=== PATIENT | male | born 1980 | race Caucasian/White ===

== ENCOUNTER → 2020-05-30 | Outpatient (CLI) | payer SELFPAY | LOC: M LABSMTC 14:26 | PROVIDERS: ATTEND Pediatrics | DX: Z20.828 Contact with and (suspected) exposure to other viral communicable diseases (principal) ==

== ENCOUNTER 2021-10-11 07:28 | Inpatient (IN) | payer OTHER, SELFPAY ==
[~2021-10-11] VITALS: Ht 165.1 cm; Wt 148.9 kg
[2021-10-11] MEDS ORDERED: LABETALOL 100MG/20ML VIAL IV STA ×2 (08:44→09:46)
[2021-10-11 08:52] LABS: VENOUS BASE EXCESS -1.8 (-2.0-2.0); VENOUS HCO3 23.2 MEQ/L (23.0-27.0); VENOUS O2 SATURATION 67.9 % (60.0-80.0); VENOUS PARTIAL PRESSURE CO2 40.4 mmHg (38.0-50.0); VENOUS PARTIAL PRESSURE O2 38.2 mmHg (30.0-50.0); VENOUS PH 7.377 UNITS (7.330-7.430); VENOUS STANDARD HCO3 22.3 MEQ/L; VENOUS TOTAL CO2 24.4 MEQ/L (24.0-28.0)
[2021-10-11 08:59] LABS: BASO # 0.1 10^3/uL (0.0-0.2); BASO % 0.4 % (0.0-1.0); EOS # 0.1 10^3/uL (0.0-0.5); EOS % 0.5 % (0.0-3.0); HEMATOCRIT 41.2 % (42.0-52.0); HEMOGLOBIN 13.2 g/dl (13.5-17.5); LYMPH % 8.2 % (24.0-44.0); MEAN CORPUSCULAR HEMOGLOBIN 26.3 pg (27.0-33.0); MEAN CORPUSCULAR VOLUME 82.2 fl (80.0-96.0); MONO # 0.7 10^3/uL (0.0-0.8); MONO % 6.1 % (2.0-8.0); NEUTROPHILS # 10.3 10^3/uL (1.5-8.5); NEUTROPHILS % 84.2 % (36.0-66.0); PLATELET COUNT, AUTOMATED 284 10^3/uL (150-450); RED BLOOD COUNT 5.01 10^6/uL (4.30-6.10); WHITE BLOOD COUNT 12.2 10^3/uL (4.0-10.0)
[2021-10-11 09:33] LABS: RSV AMPLIFICATION NEGATIVE (NEGATIVE)
[2021-10-11 09:43] LABS: BILIRUBIN,DIRECT 0.6 MG/DL (0.0-0.2); BILIRUBIN,TOTAL 1.6 MG/DL (0.2-1.0); CREATININE FOR GFR 3.73 MG/DL (0.70-1.30); GLOMERULAR FILTRATION RATE 19.2 (>60); POTASSIUM SERUM 3.3 MEQ/L (3.5-5.1); THYROID STIMULATING HORMONE 2.03 uIU/ML (0.358-3.740); TOTAL PROTEIN 6.7 GM/DL (6.4-8.2)
[2021-10-11 10:28] LABS: OSMOLALITY URINE 414 MOSM/KG (50-1400)
[2021-10-11 10:29] LABS: APPEARANCE, URINE CLEAR (CLEAR); BACTERIA, URINE AUTO 1+ (NEGATIVE); BILIRUBIN, URINE AUTO NEGATIVE (NEGATIVE); BLOOD, URINE BLOOD NEGATIVE (NEGATIVE); COLOR, URINE YELLOW (YELLOW); GLUCOSE, URINE (UA) AUTO 1+ mg/dL (NEGATIVE); KETONE, URINE AUTO NEGATIVE (NEGATIVE); LEUKOCYTE ESTERASE, URINE AUTO NEGATIVE (NEGATIVE); MUCUS, URINE SMALL (NEGATIVE); NITRITE, URINE AUTO NEGATIVE (NEGATIVE); PROTEIN, URINE AUTO 3+ mg/dL (NEGATIVE); RBC, URINE AUTO 3 /HPF (0-3); SPECIFIC GRAVITY URINE AUTO 1.013 (1.002-1.035); SQUAMOUS EPITHELIAL CELL UR AU 0 /HPF (0-6); UROBILINOGEN, URINE AUTO 0.2 mg/dL (0.0-2.0); WBC, URINE AUTO 1 /HPF (0-3)
[2021-10-11 10:57] LABS: CREATININE,RANDOM URINE 79.4 MG/DL; POTASSIUM RANDOM URINE 28.1 MEQ/L; SODIUM,RANDOM URINE 48 MEQ/L
[2021-10-11] MEDS ORDERED: HOME MED LIST COMPLETE! XX SCH (11:55)
[2021-10-11] MEDS ORDERED: D3 M1CAP2 PO (11:55)
[2021-10-11] MEDS ORDERED: VITA500C24 PO (11:55)
[2021-10-11] MEDS ORDERED: MOM 30ML SUSPENSION UDC PO PRN (12:15)
[2021-10-11] MEDS ORDERED: MAALOX 30 ML SUSP *UDC PO PRN (12:15)
[2021-10-11 12:27] LABS: MAGNESIUM LEVEL 2.5 MG/DL (1.8-2.4); URIC ACID 9.5 MG/DL (3.5-7.2)
[2021-10-11] MEDS ORDERED: FUROSEMIDE 20MG/2ML VIAL (J1940) IV ONE ×2 (13:00→17:30)
[2021-10-11] MEDS ORDERED: FUROSEMIDE 40MG/4ML VIAL (J1940) IV ONE ×2 (13:00)
[2021-10-11] MEDS: DOCUSATE SODIUM 100MG CAPSULE PO SCH ×2 (14:04→20:21)
[2021-10-11 14:46] LABS: CHOLESTEROL RISK RATIO 6.64 (<5)
[2021-10-11 14:51] LABS: HEMOGLOBIN A1c 6.5 %
[2021-10-11 16:00] VITALS: BP 178/98
[2021-10-11] MEDS ORDERED: POTASSIUM CHLORIDE 10MEQ SR TABLET PO ONE (16:10)
[2021-10-11] MEDS ORDERED: METOPROLOL TART 12.5 MG PER 1/2 TAB PO SCH (16:30)
[2021-10-11 17:43] VITALS: BP 180/112
[2021-10-11 18:03] LABS: CREATININE,RANDOM URINE 53.5 MG/DL; TOTAL PROTEIN,RANDOM URINE 228.3 MG/DL (0.0-12.0)
[2021-10-11 18:30] VITALS: BP 182/120
[2021-10-11] MEDS ORDERED: hydrALAZINE 20MG/ML 1ML VIAL (J0360 PER 20MG) IV STA ×3 (18:31→22:09)
[2021-10-11 19:48] VITALS: BP 170/100
[2021-10-11 20:00] VITALS: BP 171/110
[2021-10-11] MEDS: HEPARIN SOD (PORCINE) 5000UNITS/ML 1ML VIAL/SYRINGE SC SCH (20:21)
[2021-10-11] MEDS: METOPROLOL TART 12.5 MG PER 1/2 TAB PO SCH (20:49)
[2021-10-11 23:14] VITALS: BP 138/91
[2021-10-12] VITALS (7 sets, daily range): BP systolic 152–183; BP diastolic 87–109
[2021-10-12] MEDS: HEPARIN SOD (PORCINE) 5000UNITS/ML 1ML VIAL/SYRINGE SC SCH ×3 (05:00→20:40)
[2021-10-12 05:49] LABS: BASO # 0.1 10^3/uL (0.0-0.2); BASO % 0.6 % (0.0-1.0); EOS # 0.1 10^3/uL (0.0-0.5); EOS % 0.9 % (0.0-3.0); HEMATOCRIT 40.1 % (42.0-52.0); HEMOGLOBIN 12.9 g/dl (13.5-17.5); LYMPH # 1.2 10^3/uL (1.5-5.0); MEAN CORPUSCULAR HEMOGLOBIN 26.7 pg (27.0-33.0); MEAN CORPUSCULAR HGB CONC 32.2 g/dl (32.0-36.5); MEAN CORPUSCULAR VOLUME 82.9 fl (80.0-96.0); MONO # 0.7 10^3/uL (0.0-0.8); MONO % 6.7 % (2.0-8.0); NEUTROPHILS # 8.7 10^3/uL (1.5-8.5); NEUTROPHILS % 80.2 % (36.0-66.0); PLATELET COUNT, AUTOMATED 273 10^3/uL (150-450); RED BLOOD COUNT 4.84 10^6/uL (4.30-6.10); WHITE BLOOD COUNT 10.9 10^3/uL (4.0-10.0)
[2021-10-12 06:06] LABS: CALCIUM LEVEL 8.4 MG/DL (8.5-10.1); CREATININE FOR GFR 3.99 MG/DL (0.70-1.30); GLOMERULAR FILTRATION RATE 17.8 (>60); POTASSIUM SERUM 3.1 MEQ/L (3.5-5.1)
[2021-10-12] MEDS: METOPROLOL TART 12.5 MG PER 1/2 TAB PO SCH (07:53)
[2021-10-12] MEDS: DOCUSATE SODIUM 100MG CAPSULE PO SCH ×2 (07:53→20:39)
[2021-10-12] MEDS ORDERED: POTASSIUM CHLORIDE 10MEQ SR TABLET PO ONE (08:00)
[2021-10-12] MEDS: FUROSEMIDE 100MG/10ML VIAL (J1940) IV SCH ×2 (09:55→16:14)
[2021-10-12 10:45] LABS: COMPLEMENT C3 127 MG/DL (90-180); COMPLEMENT C4 21 MG/DL (10-40); FERRITIN 49 NG/ML (26-388); IRON (FE) 40 UG/DL (65-175); PERCENT SATURATION 10.5 % (19.7-50.0); TOTAL IRON BINDING CAPACITY 380 UG/DL (250-450); TOTAL PROTEIN 6.2 GM/DL (6.4-8.2)
[2021-10-12 10:53] LABS: PTH INTACT 284.1 PG/ML (18.5-88.0); TOTAL 25(OH) VITAMIN D 34.9 NG/ML (30.0-100.0)
[2021-10-12] MEDS ORDERED: CARVedilol 12.5 MG TAB PO ONE (18:45)
[2021-10-12] MEDS ORDERED: CARVedilol 6.25 MG TAB PO SCH (21:00)
[2021-10-13] VITALS (7 sets, daily range): BP systolic 138–173; BP diastolic 70–118
[2021-10-13] MEDS: ACETAMINOPHEN TAB 650MG DOSE (2X325MG) PO PRN ×2 (03:32→23:48)
[2021-10-13] MEDS ORDERED: **hydrALAZINE HCL** 25 MG TAB PO ONE (04:00)
[2021-10-13] MEDS: HEPARIN SOD (PORCINE) 5000UNITS/ML 1ML VIAL/SYRINGE SC SCH ×3 (05:30→21:07)
[2021-10-13 08:02] LABS: BASO # 0.1 10^3/uL (0.0-0.2); BASO % 0.6 % (0.0-1.0); EOS # 0.2 10^3/uL (0.0-0.5); EOS % 2.1 % (0.0-3.0); HEMOGLOBIN 13.1 g/dl (13.5-17.5); LYMPH # 1.4 10^3/uL (1.5-5.0); LYMPH % 12.5 % (24.0-44.0); MEAN CORPUSCULAR HGB CONC 31.2 g/dl (32.0-36.5); MEAN CORPUSCULAR VOLUME 83.5 fl (80.0-96.0); MONO # 0.8 10^3/uL (0.0-0.8); MONO % 7.4 % (2.0-8.0); NEUTROPHILS # 8.5 10^3/uL (1.5-8.5); PLATELET COUNT, AUTOMATED 289 10^3/uL (150-450); RED BLOOD COUNT 5.03 10^6/uL (4.30-6.10)
[2021-10-13 08:22] LABS: CALCIUM LEVEL 8.7 MG/DL (8.5-10.1); CREATININE FOR GFR 4.27 MG/DL (0.70-1.30); GLOMERULAR FILTRATION RATE 16.4 (>60); MAGNESIUM LEVEL 2.5 MG/DL (1.8-2.4); POTASSIUM SERUM 3.2 MEQ/L (3.5-5.1)
[2021-10-13] MEDS ORDERED: POTASSIUM CHLORIDE 10MEQ SR TABLET PO ONE ×3 (08:30→18:30)
[2021-10-13] MEDS ORDERED: **hydrALAZINE HCL** 25 MG TAB PO SCH ×2 (09:00→16:00)
[2021-10-13] MEDS ORDERED: CARVedilol 12.5 MG TAB PO SCH (09:00)
[2021-10-13] MEDS ORDERED: CARVedilol 6.25 MG TAB PO SCH (09:00)
[2021-10-13] MEDS: DOCUSATE SODIUM 100MG CAPSULE PO SCH ×2 (09:29→20:05)
[2021-10-13] MEDS: FUROSEMIDE 100MG/10ML VIAL (J1940) IV SCH (09:29)
[2021-10-13] MEDS ORDERED: CARVedilol 12.5 MG TAB PO ONE (10:05)
[2021-10-13] MEDS ORDERED: FERRIC CARBOXYMALTOSE INJ 750 MG, VIAL MATE ADAPTER 1 EACH in NS 250 ML IV ONE (12:00)
[2021-10-13 12:12] LABS: ANTINUCLEAR ANTIBODIES DIRECT Negative (Negative)
[2021-10-13] MEDS: FUROSEMIDE 40MG/4ML VIAL (J1940) IV SCH ×3 (16:00→23:11)
[2021-10-13] MEDS: ISOSORBIDE DIN. (ISORDIL) 30 MG TAB PO SCH ×2 (17:09→20:05)
[2021-10-13] MEDS: **hydrALAZINE** 50 MG TAB PO SCH ×2 (17:09→20:05)
[2021-10-13] MEDS: CARVedilol 12.5 MG TAB PO SCH (20:05)
[2021-10-14 04:00] VITALS: BP 140/76
[2021-10-14] MEDS: HEPARIN SOD (PORCINE) 5000UNITS/ML 1ML VIAL/SYRINGE SC SCH ×3 (05:17→21:18)
[2021-10-14] MEDS ORDERED: FUROSEMIDE 40MG/4ML VIAL (J1940) IV SCH ×2 (06:00→16:00)
[2021-10-14 06:16] LABS: BASO # 0.1 10^3/uL (0.0-0.2); BASO % 0.5 % (0.0-1.0); EOS # 0.3 10^3/uL (0.0-0.5); HEMATOCRIT 39.7 % (42.0-52.0); HEMOGLOBIN 12.5 g/dl (13.5-17.5); LYMPH # 1.3 10^3/uL (1.5-5.0); LYMPH % 12.7 % (24.0-44.0); MEAN CORPUSCULAR HEMOGLOBIN 26.3 pg (27.0-33.0); MEAN CORPUSCULAR HGB CONC 31.5 g/dl (32.0-36.5); MEAN CORPUSCULAR VOLUME 83.4 fl (80.0-96.0); MONO # 0.8 10^3/uL (0.0-0.8); MONO % 7.7 % (2.0-8.0); NEUTROPHILS # 7.5 10^3/uL (1.5-8.5); NEUTROPHILS % 75.8 % (36.0-66.0); PLATELET COUNT, AUTOMATED 269 10^3/uL (150-450); RED BLOOD COUNT 4.76 10^6/uL (4.30-6.10); WHITE BLOOD COUNT 9.9 10^3/uL (4.0-10.0)
[2021-10-14 06:29] LABS: INR 1.12; PROTHROMBIN TIME 14.8 SECONDS (12.7-14.5)
[2021-10-14 06:45] LABS: CALCIUM LEVEL 8.4 MG/DL (8.5-10.1); CREATININE FOR GFR 4.35 MG/DL (0.70-1.30); GLOMERULAR FILTRATION RATE 16.1 (>60); POTASSIUM SERUM 3.3 MEQ/L (3.5-5.1)
[2021-10-14 08:00] VITALS: BP 136/84
[2021-10-14] MEDS: DOCUSATE SODIUM 100MG CAPSULE PO SCH ×2 (08:31→20:02)
[2021-10-14] MEDS: **hydrALAZINE** 50 MG TAB PO SCH ×4 (08:31→20:03)
[2021-10-14] MEDS: CARVedilol 12.5 MG TAB PO SCH ×2 (08:32→20:05)
[2021-10-14] MEDS: ISOSORBIDE DIN. (ISORDIL) 30 MG TAB PO SCH ×4 (08:33→20:05)
[2021-10-14] MEDS ORDERED: POTASSIUM CHLORIDE 10MEQ SR TABLET PO SCH (09:00)
[2021-10-14] MEDS ORDERED: SITagliptin 50 MG TAB (JANUVIA) PO SCH (09:00)
[2021-10-14 12:00] VITALS: BP 132/77
[2021-10-14] MEDS: FUROSEMIDE 40MG/4ML VIAL (J1940) IV SCH ×3 (12:47→20:02)
[2021-10-14 16:00] VITALS: BP 134/78
[2021-10-14] MEDS: POTASSIUM CHLORIDE 10MEQ SR TABLET PO SCH ×2 (16:53→20:02)
[2021-10-14] MEDS ORDERED: BENZONATATE 100MG CAPSULE PO PRN (17:30)
[2021-10-14 19:11] VITALS: BP 136/63
[2021-10-14 20:00] VITALS: BP 157/73
[2021-10-15] VITALS: BP 115/68
[2021-10-15] MEDS: FUROSEMIDE 40MG/4ML VIAL (J1940) IV SCH ×3 (00:15→09:22)
[2021-10-15] MEDS: ACETAMINOPHEN TAB 650MG DOSE (2X325MG) PO PRN (00:19)
[2021-10-15 04:00] VITALS: BP 118/72
[2021-10-15] MEDS: HEPARIN SOD (PORCINE) 5000UNITS/ML 1ML VIAL/SYRINGE SC SCH ×3 (05:21→20:52)
[2021-10-15 06:05] LABS: BASO # 0.1 10^3/uL (0.0-0.2); BASO % 0.5 % (0.0-1.0); EOS # 0.3 10^3/uL (0.0-0.5); EOS % 3.4 % (0.0-3.0); HEMATOCRIT 40.2 % (42.0-52.0); HEMOGLOBIN 12.8 g/dl (13.5-17.5); LYMPH # 1.1 10^3/uL (1.5-5.0); LYMPH % 10.8 % (24.0-44.0); MEAN CORPUSCULAR HEMOGLOBIN 26.9 pg (27.0-33.0); MEAN CORPUSCULAR HGB CONC 31.8 g/dl (32.0-36.5); MEAN CORPUSCULAR VOLUME 84.6 fl (80.0-96.0); MONO # 0.8 10^3/uL (0.0-0.8); MONO % 7.8 % (2.0-8.0); NEUTROPHILS # 7.6 10^3/uL (1.5-8.5); NEUTROPHILS % 77.1 % (36.0-66.0); PLATELET COUNT, AUTOMATED 289 10^3/uL (150-450); RED BLOOD COUNT 4.75 10^6/uL (4.30-6.10); WHITE BLOOD COUNT 9.8 10^3/uL (4.0-10.0)
[2021-10-15 06:32] LABS: BLOOD UREA NITROGEN 63 MG/DL (7-18); CALCIUM LEVEL 8.3 MG/DL (8.5-10.1); CARBON DIOXIDE LEVEL 32 MEQ/L (21-32); CHLORIDE LEVEL 102 MEQ/L (98-107); CREATININE FOR GFR 4.37 MG/DL (0.70-1.30); GLUCOSE, FASTING 127 MG/DL (70-100); POTASSIUM SERUM 3.4 MEQ/L (3.5-5.1); SODIUM LEVEL 141 MEQ/L (136-145)
[2021-10-15 08:10] VITALS: BP 123/77
[2021-10-15] MEDS: POTASSIUM CHLORIDE 10MEQ SR TABLET PO SCH ×3 (09:19→20:55)
[2021-10-15] MEDS: ISOSORBIDE DIN. (ISORDIL) 30 MG TAB PO SCH ×4 (09:20→20:53)
[2021-10-15] MEDS: CARVedilol 12.5 MG TAB PO SCH ×2 (09:20→20:54)
[2021-10-15] MEDS: DOCUSATE SODIUM 100MG CAPSULE PO SCH ×2 (09:20→20:54)
[2021-10-15] MEDS: **hydrALAZINE** 50 MG TAB PO SCH (09:21)
[2021-10-15] MEDS ORDERED: DEXTROSE 50% 50 ML SYRINGE IV PRN (10:35)
[2021-10-15] MEDS ORDERED: GLUCOSE 4GM CHEW TABLET PO PRN (10:35)
[2021-10-15] MEDS ORDERED: GLUCAGON INJ 1MG VIAL SC PRN (10:35)
[2021-10-15 12:18] VITALS: BP 111/67
[2021-10-15] MEDS: HumaLOG INSULIN (NovoLOG) PER UNIT SC SCH ×3 (14:00→20:57)
[2021-10-15 15:16] LABS: TOTAL PROTEIN 24 HOUR URINE 3549.7 MG/24HR (50-150); URINE TOTAL PROTEIN 46.1 MG/DL (0-12)
[2021-10-15 16:23] VITALS: BP 146/90
[2021-10-15] MEDS: **hydrALAZINE HCL** 25 MG TAB PO SCH ×2 (16:47→20:56)
[2021-10-15] MEDS: TORSEMIDE 20 MG TAB PO SCH (16:47)
[2021-10-15 20:00] VITALS: BP 120/62
[2021-10-16] VITALS: BP 132/80
[2021-10-16] MEDS: ACETAMINOPHEN TAB 650MG DOSE (2X325MG) PO PRN (01:19)
[2021-10-16 04:00] VITALS: BP 131/80
[2021-10-16] MEDS: HEPARIN SOD (PORCINE) 5000UNITS/ML 1ML VIAL/SYRINGE SC SCH ×3 (05:21→21:23)
[2021-10-16 06:23] LABS: BASO # 0.1 10^3/uL (0.0-0.2); BASO % 0.6 % (0.0-1.0); EOS # 0.4 10^3/uL (0.0-0.5); EOS % 4.1 % (0.0-3.0); HEMATOCRIT 42.1 % (42.0-52.0); HEMOGLOBIN 13.1 g/dl (13.5-17.5); LYMPH # 1.2 10^3/uL (1.5-5.0); LYMPH % 13.6 % (24.0-44.0); MEAN CORPUSCULAR HEMOGLOBIN 26.6 pg (27.0-33.0); MEAN CORPUSCULAR HGB CONC 31.1 g/dl (32.0-36.5); MEAN CORPUSCULAR VOLUME 85.6 fl (80.0-96.0); MONO # 0.8 10^3/uL (0.0-0.8); MONO % 9.7 % (2.0-8.0); NEUTROPHILS # 6.1 10^3/uL (1.5-8.5); NEUTROPHILS % 71.6 % (36.0-66.0); PLATELET COUNT, AUTOMATED 299 10^3/uL (150-450); RED BLOOD COUNT 4.92 10^6/uL (4.30-6.10); WHITE BLOOD COUNT 8.6 10^3/uL (4.0-10.0)
[2021-10-16 06:52] LABS: CALCIUM LEVEL 8.6 MG/DL (8.5-10.1); CREATININE FOR GFR 4.32 MG/DL (0.70-1.30); GLOMERULAR FILTRATION RATE 16.2 (>60); MAGNESIUM LEVEL 2.6 MG/DL (1.8-2.4); PHOSPHORUS LEVEL 4.9 MG/DL (2.5-4.9); POTASSIUM SERUM 3.6 MEQ/L (3.5-5.1)
[2021-10-16] MEDS: HumaLOG INSULIN (NovoLOG) PER UNIT SC SCH ×4 (08:14→20:21)
[2021-10-16] MEDS: ISOSORBIDE DIN. (ISORDIL) 30 MG TAB PO SCH ×4 (08:14→20:20)
[2021-10-16] MEDS: DOCUSATE SODIUM 100MG CAPSULE PO SCH ×2 (08:14→20:19)
[2021-10-16 08:15] VITALS: BP 153/95
[2021-10-16] MEDS: TORSEMIDE 20 MG TAB PO SCH ×2 (08:15→16:08)
[2021-10-16] MEDS: POTASSIUM CHLORIDE 10MEQ SR TABLET PO SCH ×3 (08:15→20:20)
[2021-10-16] MEDS: **hydrALAZINE HCL** 25 MG TAB PO SCH ×3 (08:15→20:21)
[2021-10-16 10:34] LABS: HEPATITIS B SURFACE ANTIGEN NEGATIVE (NEGATIVE)
[2021-10-16 11:02] LABS: HEPATITIS C VIRUS ABY INDEX 0.2 INDEX (<0.8)
[2021-10-16 11:03] LABS: HEPATITIS B CORE ANTIBODY IGM NEGATIVE (NEGATIVE); HIV 1&2 SCREEN CENTAUR NEGATIVE (NEGATIVE)
[2021-10-16 11:25] VITALS: BP 153/91
[2021-10-16] MEDS: CARVedilol 12.5 MG TAB PO SCH ×2 (11:26→20:23)
[2021-10-16] MEDS ORDERED: LIDOCAINE 1% MDV 20ML VIAL As Ordered ONE (12:48)
[2021-10-16 16:35] VITALS: BP 112/56
[2021-10-16 18:08] LABS: COMPLEMENT TOTAL (CH50) > 60 U/mL (>41)
[2021-10-16 20:00] VITALS: BP 127/75
[2021-10-17] VITALS (7 sets, daily range): BP systolic 128–184; BP diastolic 76–138
[2021-10-17 03:58] LABS: BASO # 0.1 10^3/uL (0.0-0.2); BASO % 0.6 % (0.0-1.0); EOS # 0.4 10^3/uL (0.0-0.5); EOS % 4.6 % (0.0-3.0); HEMATOCRIT 41.2 % (42.0-52.0); HEMOGLOBIN 13.2 g/dl (13.5-17.5); LYMPH # 1.2 10^3/uL (1.5-5.0); LYMPH % 13.1 % (24.0-44.0); MEAN CORPUSCULAR HEMOGLOBIN 27.1 pg (27.0-33.0); MEAN CORPUSCULAR VOLUME 84.6 fl (80.0-96.0); MONO # 0.9 10^3/uL (0.0-0.8); MONO % 10.5 % (2.0-8.0); NEUTROPHILS # 6.4 10^3/uL (1.5-8.5); PLATELET COUNT, AUTOMATED 291 10^3/uL (150-450); RED BLOOD COUNT 4.87 10^6/uL (4.30-6.10)
[2021-10-17 04:15] LABS: CALCIUM LEVEL 9.1 MG/DL (8.5-10.1); CREATININE FOR GFR 4.36 MG/DL (0.70-1.30); POTASSIUM SERUM 3.8 MEQ/L (3.5-5.1)
[2021-10-17] MEDS: HEPARIN SOD (PORCINE) 5000UNITS/ML 1ML VIAL/SYRINGE SC SCH ×3 (05:41→20:24)
[2021-10-17] MEDS: ISOSORBIDE DIN. (ISORDIL) 30 MG TAB PO SCH ×3 (08:27→20:26)
[2021-10-17] MEDS: POTASSIUM CHLORIDE 10MEQ SR TABLET PO SCH ×2 (08:27→20:22)
[2021-10-17] MEDS: DOCUSATE SODIUM 100MG CAPSULE PO SCH ×2 (08:27→20:21)
[2021-10-17] MEDS: HumaLOG INSULIN (NovoLOG) PER UNIT SC SCH ×4 (08:27→20:23)
[2021-10-17] MEDS: TORSEMIDE 20 MG TAB PO SCH ×2 (08:28→17:49)
[2021-10-17] MEDS: CARVedilol 12.5 MG TAB PO SCH ×2 (08:28→20:23)
[2021-10-17] MEDS: **hydrALAZINE HCL** 25 MG TAB PO SCH ×3 (08:28→20:23)
[2021-10-17 12:48] LABS: ALBUMIN 3.16 GM/DL (3.29-5.55); ALPHA-1-GLOBULIN % 6.7 % (2.9-4.9); ALPHA-1-GLOBULINS 0.42 GM/DL (0.17-0.41); ALPHA-2-GLOBULINS 0.64 GM/DL (0.42-0.99); ALPHA-2-GLOBULINS % 10.4 % (7.1-11.8); BETA-1-GLOBULINS 0.43 GM/DL (0.28-0.60); BETA-2-GLOBULINS % 6.4 % (3.2-6.5); GAMMA GLOBULIN % 18.5 % (11.1-18.8); GAMMA GLOBULINS 1.15 GM/DL (0.65-1.58)
[2021-10-17] MEDS: ACETAMINOPHEN TAB 650MG DOSE (2X325MG) PO PRN (23:36)
[2021-10-18] VITALS: BP 135/76
[2021-10-18 04:00] VITALS: BP 153/93
[2021-10-18] MEDS: HEPARIN SOD (PORCINE) 5000UNITS/ML 1ML VIAL/SYRINGE SC SCH ×2 (05:42→13:08)
[2021-10-18] MEDS: ISOSORBIDE DIN. (ISORDIL) 30 MG TAB PO SCH ×2 (05:43→13:08)
[2021-10-18] MEDS: **hydrALAZINE HCL** 25 MG TAB PO SCH ×2 (05:44→13:08)
[2021-10-18 06:29] LABS: BASO # 0.1 10^3/uL (0.0-0.2); BASO % 0.5 % (0.0-1.0); EOS # 0.4 10^3/uL (0.0-0.5); EOS % 3.7 % (0.0-3.0); HEMATOCRIT 41.6 % (42.0-52.0); MEAN CORPUSCULAR HEMOGLOBIN 26.5 pg (27.0-33.0); MEAN CORPUSCULAR HGB CONC 31.3 g/dl (32.0-36.5); MEAN CORPUSCULAR VOLUME 84.7 fl (80.0-96.0); NEUTROPHILS # 8.3 10^3/uL (1.5-8.5); NEUTROPHILS % 77.4 % (36.0-66.0); PLATELET COUNT, AUTOMATED 288 10^3/uL (150-450); RED BLOOD COUNT 4.91 10^6/uL (4.30-6.10); WHITE BLOOD COUNT 10.7 10^3/uL (4.0-10.0)
[2021-10-18 06:50] LABS: CALCIUM LEVEL 9.1 MG/DL (8.5-10.1); CREATININE FOR GFR 4.2 MG/DL (0.70-1.30); GLOMERULAR FILTRATION RATE 16.7 (>60); POTASSIUM SERUM 3.5 MEQ/L (3.5-5.1)
[2021-10-18] MEDS: HumaLOG INSULIN (NovoLOG) PER UNIT SC SCH ×2 (07:30→12:00)
[2021-10-18 08:06] VITALS: BP 150/90
[2021-10-18] MEDS: CARVedilol 12.5 MG TAB PO SCH (08:29)
[2021-10-18] MEDS: POTASSIUM CHLORIDE 10MEQ SR TABLET PO SCH (08:29)
[2021-10-18] MEDS: DOCUSATE SODIUM 100MG CAPSULE PO SCH (08:29)
[2021-10-18] MEDS: ACETAMINOPHEN TAB 650MG DOSE (2X325MG) PO PRN (08:29)
[2021-10-18] MEDS: TORSEMIDE 20 MG TAB PO SCH (08:30)
[2021-10-18] MEDS ORDERED: POTA-136 PO (12:09)
[2021-10-18] MEDS ORDERED: ISOS30TAB PO (12:09)
[2021-10-18] MEDS ORDERED: TORS20TA2 PO (12:09)
[2021-10-18] MEDS ORDERED: HYDR-3911 PO (12:09)
[2021-10-18] MEDS ORDERED: JARD1TAB PO (12:09)
[2021-10-18] MEDS ORDERED: CARV25TA PO (12:09)
[2021-10-18 12:19] VITALS: BP 160/100
[2021-10-18 13:08] VITALS: BP 160/100
[2021-10-18 14:04] VITALS: BP 142/75
[2021-10-18] MEDS ORDERED: CARVedilol 12.5 MG TAB PO SCH (16:00)
[2021-10-18] MEDS ORDERED: POTASSIUM CHLORIDE 10MEQ SR TABLET PO SCH (21:00)
== END 2021-10-18 15:27 | disposition home or self-care (01) | DRG 194 ==
LOC: M ED 07:28 → M ED INP 13:04 → ENRESERV 14:20 → M PCU 15:57
PROVIDERS: ADMIT Internal Medicine; ATTEND Internal Medicine
PROC: 0TB13ZX Excision of Left Kidney, Percutaneous Approach, Diagnostic (ICD-10-PCS; principal; 2021-10-16 12:00)
DX: I13.0 Hypertensive heart and chronic kidney disease with heart failure and stage 1 through stage 4 chronic kidney disease, or unspecified chronic kidney disease (principal); N17.9 Acute kidney failure, unspecified; I31.3 Pericardial effusion (noninflammatory); N18.4 Chronic kidney disease, stage 4 (severe); E11.22 Type 2 diabetes mellitus with diabetic chronic kidney disease; E66.2 Morbid (severe) obesity with alveolar hypoventilation; I27.89 Other specified pulmonary heart diseases; N04.9 Nephrotic syndrome with unspecified morphologic changes; Z68.44 Body mass index [BMI] 60.0-69.9, adult; I24.8 Other forms of acute ischemic heart disease; I42.9 Cardiomyopathy, unspecified; I16.0 Hypertensive urgency; N50.89 Other specified disorders of the male genital organs; R00.1 Bradycardia, unspecified; R60.1 Generalized edema; I34.1 Nonrheumatic mitral (valve) prolapse; E87.6 Hypokalemia; I35.1 Nonrheumatic aortic (valve) insufficiency; Z79.899 Other long term (current) drug therapy; Z86.16 Personal history of COVID-19; Z90.49 Acquired absence of other specified parts of digestive tract; I50.42 Chronic combined systolic (congestive) and diastolic (congestive) heart failure; I50.810 Right heart failure, unspecified

== ENCOUNTER → 2021-10-30 | Outpatient (CLI) | payer OTHER ==
[~2021-10-30] MED LIST: CARV25TA PO; D3 M1CAP2 PO; HYDR-3911 PO; ISOS30TAB PO; JARD1TAB PO; POTA-136 PO; TORS20TA2 PO; VITA500C24 PO
[2021-10-30 16:59] LABS: ALBUMIN 3.6 GM/DL (3.2-5.2); BILIRUBIN,TOTAL 0.6 MG/DL (0.2-1.0); CALCIUM LEVEL 9.8 MG/DL (8.5-10.1); CREATININE FOR GFR 4.88 MG/DL (0.70-1.30); GLOMERULAR FILTRATION RATE 14.1 (>60); POTASSIUM SERUM 4.4 MEQ/L (3.5-5.1); TOTAL PROTEIN 7.8 GM/DL (6.4-8.2)
== END ==
LOC: M ADAMS 14:19
PROVIDERS: ATTEND Internal Medicine Cardiovascular Disease
DX: I50.42 Chronic combined systolic (congestive) and diastolic (congestive) heart failure (principal); R94.31 Abnormal electrocardiogram [ECG] [EKG]; I11.0 Hypertensive heart disease with heart failure

== ENCOUNTER → 2021-11-03 | Outpatient (REF) | payer OTHER ==
[2021-11-03 18:20] LABS: TOTAL PROTEIN,RANDOM URINE 67.6 MG/DL (0.0-12.0)
== END ==
LOC: M LAB REF 17:01
PROVIDERS: ATTEND Nurse Practitioner Family
DX: R80.9 Proteinuria, unspecified (principal)

== ENCOUNTER → 2022-02-14 | Outpatient (CLI) | payer OTHER ==
[2022-02-14 17:23] LABS: CALCIUM LEVEL 9.1 MG/DL (8.5-10.1); CREATININE FOR GFR 3.4 MG/DL (0.70-1.30); GLOMERULAR FILTRATION RATE 21.4 (>60); MAGNESIUM LEVEL 2.5 MG/DL (1.8-2.4); POTASSIUM SERUM 3.8 MEQ/L (3.5-5.1)
== END ==
LOC: M ADAMS 15:05
PROVIDERS: ATTEND Physician Assistant
DX: I50.42 Chronic combined systolic (congestive) and diastolic (congestive) heart failure (principal)

== ENCOUNTER → 2022-09-04 | Outpatient (REF) | payer OTHER | LOC: M SFHCADAM 15:05 | PROVIDERS: ATTEND Physician Assistant Medical | DX: M10.30 Gout due to renal impairment, unspecified site (principal) ==

== ENCOUNTER → 2023-02-07 | Outpatient (REF) | payer OTHER ==
[2023-02-07 13:11] LABS: BASO # 0.1 10^3/uL (0.0-0.2); BASO % 0.5 % (0.0-1.0); EOS # 0.2 10^3/uL (0.0-0.5); EOS % 2.5 % (0.0-3.0); HEMATOCRIT 44.4 % (42.0-52.0); HEMOGLOBIN 14.2 g/dl (13.5-17.5); LYMPH # 1.4 10^3/uL (1.5-5.0); LYMPH % 15.5 % (24.0-44.0); MEAN CORPUSCULAR HEMOGLOBIN 28.6 pg (27.0-33.0); MEAN CORPUSCULAR VOLUME 89.3 fl (80.0-96.0); MONO # 0.6 10^3/uL (0.0-0.8); MONO % 6.9 % (2.0-8.0); NEUTROPHILS # 6.9 10^3/uL (1.5-8.5); NEUTROPHILS % 74.1 % (36.0-66.0); PLATELET COUNT, AUTOMATED 252 10^3/uL (150-450); RED BLOOD COUNT 4.97 10^6/uL (4.30-6.10); WHITE BLOOD COUNT 9.3 10^3/uL (4.0-10.0)
[2023-02-07 13:28] LABS: HEMOGLOBIN A1c 5.7 % (4.0-6.0)
[2023-02-07 13:40] LABS: THYROID STIMULATING HORMONE 2.018 uIU/ML (0.55-4.78); TOTAL 25(OH) VITAMIN D 15.1 NG/ML (20.0-100.0)
[2023-02-07 14:06] LABS: ALBUMIN 3.7 G/DL (3.2-5.2); BILIRUBIN,TOTAL 0.6 MG/DL (0.3-1.2); CHOLESTEROL RISK RATIO 6.6 (<5); CREATININE FOR GFR 2.02 MG/DL (0.70-1.30); GLOMERULAR FILTRATION RATE 38.8 (>60); LDL CHOLESTEROL 141.4 MG/DL (<100); POTASSIUM SERUM 4.1 MMOL/L (3.5-5.1); TOTAL PROTEIN 7.4 G/DL (5.7-8.2)
== END ==
LOC: M SFHCADAM 08:03
PROVIDERS: ATTEND Physician Assistant Medical
DX: I50.42 Chronic combined systolic (congestive) and diastolic (congestive) heart failure (principal); E11.22 Type 2 diabetes mellitus with diabetic chronic kidney disease; E66.01 Morbid (severe) obesity due to excess calories

== ENCOUNTER → 2023-09-05 | Outpatient (REF) | payer OTHER, BC ==
[~2023-09-05] MED LIST changes: -HYDR-3911 PO; +HYDR50TA46 PO
== END ==
LOC: M SFHCADAM 12:42
PROVIDERS: ATTEND Physician Assistant Medical
DX: R50.9 Fever, unspecified (principal)

== ENCOUNTER → 2023-10-10 | Outpatient (CLI) | payer BC | LOC: M PLAIMG 09:46 | PROVIDERS: ATTEND Physician Assistant | DX: I50.42 Chronic combined systolic (congestive) and diastolic (congestive) heart failure (principal); I35.1 Nonrheumatic aortic (valve) insufficiency; I34.0 Nonrheumatic mitral (valve) insufficiency ==

== ENCOUNTER → 2024-07-24 | Outpatient (REF) | payer BC ==
[2024-07-24 14:05] LABS: BASO % 0.5 % (0.0-1.0); EOS # 0.3 10^3/uL (0.0-0.5); EOS % 3.2 % (0.0-3.0); HEMATOCRIT 42.1 % (42.0-52.0); HEMOGLOBIN 13.4 g/dl (13.5-17.5); LYMPH # 1.7 10^3/uL (1.5-5.0); LYMPH % 21.4 % (24.0-44.0); MEAN CORPUSCULAR HEMOGLOBIN 29.6 pg (27.0-33.0); MEAN CORPUSCULAR HGB CONC 31.8 g/dl (32.0-36.5); MEAN CORPUSCULAR VOLUME 93.1 fl (80.0-96.0); MONO # 0.7 10^3/uL (0.0-0.8); MONO % 8.5 % (2.0-8.0); NEUTROPHILS # 5.2 10^3/uL (1.5-8.5); PLATELET COUNT, AUTOMATED 227 10^3/uL (150-450); RED BLOOD COUNT 4.52 10^6/uL (4.30-6.10); WHITE BLOOD COUNT 7.8 10^3/uL (4.0-10.0)
[2024-07-24 14:23] LABS: HEMOGLOBIN A1c 6.3 % (4.0-6.0)
[2024-07-24 14:28] LABS: URIC ACID 11.3 MG/DL (3.7-9.2)
[2024-07-24 14:31] LABS: ALBUMIN 3.7 G/DL (3.2-5.2); ALKALINE PHOSPHATASE 57 U/L (40-129); ALT/SGPT 12 U/L (7.0-40); AST/SGOT 13 U/L (<34); BILIRUBIN,TOTAL 0.4 MG/DL (0.3-1.2); BLOOD UREA NITROGEN 33 MG/DL (9-23); CALCIUM LEVEL 8.8 MG/DL (8.5-10.1); CARBON DIOXIDE LEVEL 26 MMOL/L (20-31); CHLORIDE LEVEL 107 MMOL/L (98-107); CHOLESTEROL LEVEL 215 MG/DL (<200); CHOLESTEROL RISK RATIO 8.23 (<5); CREATININE FOR GFR 2.25 MG/DL (0.70-1.30); GLOMERULAR FILTRATION RATE 33.9 (>60); GLUCOSE, FASTING 122 MG/DL (60-100); HDL CHOLESTEROL 26.1 MG/DL (>40); MAGNESIUM LEVEL 2.2 MG/DL (1.8-2.4); NON-HDL-C 188.9 MG/DL; POTASSIUM SERUM 4.4 MMOL/L (3.5-5.1); SODIUM LEVEL 141 MMOL/L (136-145); TOTAL PROTEIN 7.8 G/DL (5.7-8.2); TRIGLYCERIDES LEVEL 642 MG/DL (<150)
[2024-07-24 14:33] LABS: THYROID STIMULATING HORMONE 2.055 uIU/ML (0.55-4.78); TOTAL 25(OH) VITAMIN D 25.8 NG/ML (20.0-100.0)
== END ==
LOC: M SFHCADAM 07:49
PROVIDERS: ATTEND Physician Assistant Medical
DX: E11.22 Type 2 diabetes mellitus with diabetic chronic kidney disease (principal); M10.30 Gout due to renal impairment, unspecified site; I50.22 Chronic systolic (congestive) heart failure; E55.9 Vitamin D deficiency, unspecified; E78.2 Mixed hyperlipidemia; N18.9 Chronic kidney disease, unspecified

== ENCOUNTER → 2024-09-18 | Outpatient (CLI) | payer BC | LOC: M RAD 08:13 | PROVIDERS: ATTEND Physician Assistant Medical | DX: R60.0 Localized edema (principal) ==

== ENCOUNTER → 2024-09-24 | Outpatient (REF) | payer BC ==
[2024-09-24 14:37] LABS: BASO # 0.1 10^3/uL (0.0-0.2); BASO % 0.9 % (0.0-1.0); EOS # 0.2 10^3/uL (0.0-0.5); EOS % 2.4 % (0.0-3.0); HEMATOCRIT 40.5 % (42.0-52.0); HEMOGLOBIN 12.9 g/dl (13.5-17.5); LYMPH # 1.6 10^3/uL (1.5-5.0); LYMPH % 19.7 % (24.0-44.0); MEAN CORPUSCULAR HEMOGLOBIN 28.5 pg (27.0-33.0); MEAN CORPUSCULAR HGB CONC 31.9 g/dl (32.0-36.5); MEAN CORPUSCULAR VOLUME 89.6 fl (80.0-96.0); MONO # 0.6 10^3/uL (0.0-0.8); MONO % 7.1 % (2.0-8.0); NEUTROPHILS # 5.6 10^3/uL (1.5-8.5); NEUTROPHILS % 69.4 % (36.0-66.0); PLATELET COUNT, AUTOMATED 462 10^3/uL (150-450); RED BLOOD COUNT 4.52 10^6/uL (4.30-6.10)
[2024-09-24 14:55] LABS: ERYTHROCYTE SEDIMENTATION RATE 46 mm/hr (0-15)
[2024-09-24 15:00] LABS: URIC ACID 11.5 MG/DL (3.7-9.2)
[2024-09-24 15:03] LABS: C REACTIVE PROTEIN QUANTITATIV 0.94 MG/DL (<1.0)
== END ==
LOC: M SFHCADAM 07:51
PROVIDERS: ATTEND Physician Assistant Medical
DX: M25.562 Pain in left knee (principal); M25.462 Effusion, left knee

== ENCOUNTER → 2024-09-28 | Outpatient (CLI) | payer BC | LOC: M SOG 07:49 | PROVIDERS: ATTEND Orthopaedic Surgery | DX: M25.562 Pain in left knee (principal); M19.072 Primary osteoarthritis, left ankle and foot ==

== ENCOUNTER → 2024-10-26 | Outpatient (REF) | payer BC ==
[~2024-10-26] MED LIST changes: +ISOS-18 PO; -ISOS30TAB PO
[2024-10-26 17:26] LABS: URIC ACID 7.5 MG/DL (3.7-9.2)
[2024-10-26 17:29] LABS: CHOLESTEROL LEVEL 195 MG/DL (<200); CHOLESTEROL RISK RATIO 7.24 (<5); HDL CHOLESTEROL 26.9 MG/DL (>40); NON-HDL-C 168.1 MG/DL; TRIGLYCERIDES LEVEL 464 MG/DL (<150)
== END ==
LOC: M SFHCADAM 13:01
PROVIDERS: ATTEND Physician Assistant Medical
DX: M10.30 Gout due to renal impairment, unspecified site (principal)

== ENCOUNTER → 2025-02-25 | Outpatient (REF) | payer BC ==
[2025-02-25 14:51] LABS: BASO # 0.0 10^3/uL (0.0-0.2); BASO % 0.5 % (0.0-1.0); EOS # 0.2 10^3/uL (0.0-0.5); EOS % 3.0 % (0.0-3.0); LYMPH # 1.5 10^3/uL (1.5-5.0); LYMPH % 20.3 % (24.0-44.0); MONO # 0.5 10^3/uL (0.0-0.8); MONO % 7.1 % (2.0-8.0); NEUTROPHILS # 5.0 10^3/uL (1.5-8.5); NEUTROPHILS % 68.7 % (36.0-66.0); PLATELET COUNT, AUTOMATED 246 10^3/uL (150-450)
[2025-02-25 15:27] LABS: TOTAL 25(OH) VITAMIN D 63.0 NG/ML (20.0-100.0); VITAMIN B12 LEVEL 373.0 PG/ML (211-911)
[2025-02-25 15:29] LABS: ALT/SGPT 12.0 U/L (7.0-40); AST/SGOT 20.0 U/L (<34); CALCIUM LEVEL 9.8 MG/DL (8.5-10.1); CARBON DIOXIDE LEVEL 28.0 MMOL/L (20-31); CHLORIDE LEVEL 105.0 MMOL/L (98-107); CHOLESTEROL LEVEL 211.0 MG/DL (<200); CHOLESTEROL RISK RATIO 7.08 (<5); CREATININE FOR GFR 2.13 MG/DL (0.70-1.30); FREE T4 1.49 NG/DL (0.89-1.76); GLOMERULAR FILTRATION RATE 38.4 (>60); IRON (FE) 57.0 UG/DL (65-175); LDL CHOLESTEROL 116.2 MG/DL (<100); NON-HDL-C 181.2 MG/DL; PERCENT SATURATION 20.8 % (19.7-50.0); POTASSIUM SERUM 4.2 MMOL/L (3.5-5.1); SODIUM LEVEL 144.0 MMOL/L (136-145); TRIGLYCERIDES LEVEL 325.0 MG/DL (<150)
[2025-02-25 15:52] LABS: ESTIMATED AVERAGE GLUCOSE 108.0 MG/DL (60-110)
== END ==
LOC: M SFHCADAM 07:37
PROVIDERS: ATTEND Physician Assistant Medical
DX: E11.22 Type 2 diabetes mellitus with diabetic chronic kidney disease (principal); M10.30 Gout due to renal impairment, unspecified site; N18.4 Chronic kidney disease, stage 4 (severe); I50.32 Chronic diastolic (congestive) heart failure; D64.9 Anemia, unspecified